=== PATIENT | female | born 1990 | race Caucasian/White ===

== ENCOUNTER 2016-11-16 12:52 | Outpatient (CLI) | payer OTHER ==
--- NOTE | 2016-11-16 14:07 | DIAGNOSTIC IMAGING REPORT ---
PROCEDURE: US OB DETAILED ANATOMIC INDICATION: ANATOMY TECHNIQUE: Sebastian scale, color, and spectral Doppler images of the second trimester gravid uterus were obtained. COMPARISON: None. FINDINGS: A single living intrauterine is in vertex presentation. There is regular cardiac activity at a rate of 147 beats per minute. The placenta is anterior and away from the internal cervical os. The cervix is closed measuring approximately 3.8 cm in length. The amniotic fluid volume is subjectively normal. Biparietal diameter 4.2 cm, 18 weeks 6 days Head circumference 15.7 cm, 18 weeks 4 days Abdominal circumference 12.3 cm, 18 weeks 0 days Femur length 2.7 cm, 18 weeks 1 day Head to abdominal circumference ratio and femur length to abdominal circumference ratios are normal. Estimated weight 225 g plus/minus 34 g Composite gestational age 18 weeks 3 days There was visualization of a number of normal structures including the intracranial contents, facial features, nuchal region, spine, four-chamber heart and outflow tracts to the extent that could be visualized, diaphragm, fluid-filled stomach, kidneys, abdomen, urinary bladder, upper and lower extremities, and genitals. A three-vessel umbilical cord, normal and placental cord insertion sites were seen. IMPRESSION: 1. Single living intrauterine with a composite gestational age of 18 weeks 3 days and estimated due date 04/16/2017. 2. Symmetric growth and normal anatomy.
== END 2016-11-16 23:00 ==
LOC: US SRH 12:52
DX: Z34.92 Encounter for supervision of normal pregnancy, unspecified, second trimester (principal); Z3A.18 18 weeks gestation of pregnancy